=== PATIENT | female | born 2000 | race Caucasian/White ===

== ENCOUNTER 2025-06-14 14:27 | Emergency (ER) | payer OTHER ==
[~2025-06-14] VITALS: Ht 160 cm; Wt 68.0 kg
[2025-06-14] MEDS ORDERED: HYDROmorphONE Hydrochloride 0.5 MG/0.5 ML SYRINGE IV ONE (14:50)
[2025-06-14] MEDS ORDERED: SODIUM CHLORIDE 0.9% 500 ML IV ONE (14:50)
[2025-06-14] MEDS ORDERED: ceFAZolin sodium 1 GM in SYRINGE INFUSION 10 ML IV ONE (14:50)
[2025-06-14] MEDS ORDERED: Tdap Vaccine 0.5 ML SYR (Adult Vaccine) IM ONE (14:50)
[2025-06-14] MEDS ORDERED: SODIUM CHLORIDE 0.9% 1,000 ML IV ONE (14:50)
[2025-06-14] MEDS ORDERED: ceFAZolin sodium/sodium chlor 10 ML IV ONE (15:05)
[2025-06-14] MEDS ORDERED: Bacitracin Zinc 14 GM TUBE T ONE (15:20)
== END 2025-06-14 16:10 | disposition short-term general hospital (02) ==
LOC: ED 14:27
DX: T23.332A Burn of third degree of multiple left fingers (nail), not including thumb, initial encounter (principal); T22.212A Burn of second degree of left forearm, initial encounter; T22.211A Burn of second degree of right forearm, initial encounter; T31.0 Burns involving less than 10% of body surface; X19.XXXA Contact with other heat and hot substances, initial encounter; Y93.89 Activity, other specified; Y92.89 Other specified places as the place of occurrence of the external cause; Y99.8 Other external cause status